=== PATIENT | male | born 1980 | race Caucasian/White ===

== ENCOUNTER 2017-11-18 15:34 | Inpatient (IN) | payer SELFPAY ==
[2017-11-18 18:12] LABS: Bilirubin Negative (Negative); Blood, Urine Negative (Negative); Clarity CLEAR (Clear); Glucose, Urine (Dipstick) Negative (Negative); Leukocyte Negative (Negative); Nitrite Negative (Negative); Protein, Urine (Dipstick) Negative (Neg-Trace); Specific Gravity, Urine 1.002 (1.002-1.036); pH, Urine 7.5 (5.0-9.0)
[2017-11-18 18:22] LABS: Amphetamine Not Detected (NotDetected); Barbiturates Screen Not Detected (NotDetected); Benzodiazepine Screen Detected (NotDetected); Cocaine Metabolite Screen Not Detected (NotDetected); Medtox Control Line Valid? VALID (VALID); Medtox Reader # READER 1; Methadone Not Detected (NotDetected); Methamphetamine Not Detected (NotDetected); Opiate Screen Not Detected (NotDetected); Oxycodone Screen Not Detected (NotDetected); Phencyclidine (PCP) Not Detected (NotDetected); THC/Cannabinoid Screen Not Detected (NotDetected); Tricyclic Screen Not Detected (NotDetected)
[2017-11-18 18:38] LABS: ALT (SGPT) 71 U/L (8-55); AST (SGOT) 206 U/L (5-34); Albumin 3.5 g/dL (3.5-5.0); Alkaline Phosphatase 131 U/L (40-150); Anion Gap 15 mmol/L (10-20); BUN (Urea Nitrogen) 6 mg/dL (8.9-20.6); Calc. Creatinine Clearance 0 mL/min (70-130); Calcium 8.2 mg/dL (7.8-10.44); Carbon Dioxide 23 mmol/L (22-29); Chloride 109 mmol/L (98-107); Estimated GFR-MDRD Greater than 90; Globulin 3.1 g/dL (2.4-3.5); Glucose 120 mg/dL (70-105); Potassium 3.7 mmol/L (3.5-5.1); Protein, Total 6.6 g/dL (6.0-8.3); Sodium 143 mmol/L (136-145)
[2017-11-18 18:43] LABS: #Basophils 0.1 thou/uL (0.0-0.2); #Lymphocytes 1.8 thou/uL (1.20-3.40); #Monocytes 0.3 thou/uL (0.11-0.59); #Neutrophils 2.2 thou/uL (1.40-6.50); %Basophils 1.6 % (0.0-1.0); %Eosinophils 0.7 % (0.0-10.0); %Lymphocytes 40.7 % (21.0-51.0); %Monocytes 6.2 % (0.0-10.0); %Neutrophils 50.8 % (42.0-75.0); Mean Corpuscular HGB CONC 35.2 g/dL (32.0-36.0); Mean Corpuscular Hemoglobin 31.5 pg (27.0-31.0); Mean Corpuscular Volume 89.6 fL (78.0-98.0); Mean Platelet Volume 9.1 fL (7.4-10.4); PLT Morphology Comment Appears Decreased; Platelet Count 36 thou/uL (130-400); RBC Distribution Width 14.3 % (11.5-14.5); Red Blood Cell (RBC) Count 4.75 mill/uL (4.70-6.10); White Blood Cell (WBC) Count 4.4 thou/uL (4.8-10.8)
[2017-11-18] MEDS ORDERED: Multivitamins, Adult 10 ML, Thiamine HCl 100 MG, Folic Acid 1 MG in Dextrose 5 %-0.45 %... IV ONE (19:30)
[2017-11-18 19:31] LABS: Acetaminophen Less than 6.0 mcg/mL (10.0-30.0); Alcohol 390 mg/dL (Less than 10); Salicylate Less than 8.0 mg/dL (15.0-30.0)
[2017-11-19] MEDS ORDERED: Ondansetron HCl/PF 4 MG/2 ML Vial IVP PRN
[2017-11-19] MEDS ORDERED: Diazepam 5 MG TAB PO PRN (02:12)
[2017-11-19] MEDS ORDERED: Thiamine HCl 200 MG/2 ML VIAL IM SCH (02:15)
[2017-11-19 02:17] VITALS: BMI 25.4
[2017-11-19 06:20] LABS: Anion Gap 9 mmol/L (10-20); BUN (Urea Nitrogen) 4 mg/dL (8.9-20.6); Calc. Creatinine Clearance 209 mL/min (70-130); Calcium 7.4 mg/dL (7.8-10.44); Carbon Dioxide 26 mmol/L (22-29); Chloride 111 mmol/L (98-107); Estimated GFR-MDRD Greater than 90; Glucose 155 mg/dL (70-105); Sodium 143 mmol/L (136-145)
--- NOTE | 2017-11-19 06:49 | HP-2 ---
PRIMARY CARE PHYSICIAN: The patient has no PCP. CODE STATUS: FULL CODE. TIME OF EVALUATION: 11:50 p.m. CHIEF COMPLAINT: For this patient was overdosed on Xanax and alcohol intoxication. HISTORY OF PRESENT ILLNESS: This is a 37-year-old male patient. The patient has a past medical hist ory of alcohol abuse, benzodiazepines abuse, the patient reported that he was trying to quit and got symptoms of delirium tremens, so he started drinking alcohol again and took a couple of Xanax, 2 mg, report recent inconsistent. Patient came to the ER and was lethargic due to intoxication. Dur ing my examination, mental status much better, patient has stated that he was trying to quit, but it has been very difficult for him. Symptoms were severe. No alleviating factors, no medical treatment . REVIEW OF SYSTEMS: Constitutional: No fever or chills or generalized weakness. Respiratory: No co ugh, sputum production, or shortness of breath. Cardiovascular: No chest pain, palpitations, shortn ess of breath. Gastrointestinal: No nausea, no vomiting, diarrhea or abdominal pain. 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 Genitourinary: No burning with urination. Extremiti es: No leg swelling. All other systems were reviewed and are negative except for the findings menti oned above. PAST MEDICAL HISTORY: Positive for liver cirrhosis and alcohol abuse, benzodiazepines abuse. PAST SURGICAL HISTORY: No surgical history. PSYCHIATRIC HISTORY: Anxiety and depression. FAMILY HISTORY: Mother alcoholic. ALLERGIES: No known drug allergies. REPORTED MEDICATIONS: None. PHYSICAL EXAMINATION: VITAL SIGNS: On presentation, blood pressure 139/82 with heart rate 94, respiratory rate of 16, temp erature 98.7, pain was 0, oxygen saturation was 96 on room air. The patient is protecting airways. GENERAL: The patient is alert, oriented with poor hygiene. HEENT: Eyes, normal conjunctivae, moist oral mucosa, anicteric. NECK: No JVD. RESPIRATORY: Bilateral air entry. No rales, no wheezing. Symmetric expansion. CARDIOVASCULAR: Normal rate, regular rhythm. No murmurs, no gallop, no edema. ABDOMEN: Soft, normal bowel sounds. MUSCULOSKELETAL: Baseline range of motion and strength, no tenderness. SKIN: Warm and intact. No pallor, no rash, no redness. Peripheral pulses are present. Capillary r efill seems to be intact. NEUROLOGIC: Baseline sensorium. No evidence of any new focal weakness. Baseline speech. Cranial n erve seems to be intact. PSYCHIATRIC: The patient in a good mood. No anxiety. Oriented, optimal judgment, occasionally seem s to be depressed. LABORATORY DATA: Labs were reviewed. The patient has a white count of 4.4, hemoglobin 15, MCV 89, p latelet count 36. Chemistry: Sodium 143, potassium 3.7, chloride 109, carbon dioxide 23, anion gap 15, BUN 6, creatinine 0.6, GFR greater than 90, glucose 120, calcium 9.2, total bilirubin 2.0, AST 20 6, ALT 71, alkaline phosphatase 131. CK 181, serum total protein 6.6, albumin 3.5. TSH 0.8. Urine was negative. Toxicology, benzodiazepines were detected. Plasma alcohol 390. ASSESSMENT AND PLAN: The patient will be placed in the hospital with following medical problems: 1. Alcohol intoxication, patient was trying to restart drinking again. Presented to the ER wi th acute encephalopathy secondary to intoxication and also due to Xanax overdose. These symptoms are improving, alcohol level still 390. We will monitor overnight. We will watch for delirium tremens. Placed the patient on DOMINIC protocol, we will adjust treatment as needed, might benefit from case man ager consult to see if the patient can receive any help for rehabilitation program, he is interesting to go. 2. History of liver cirrhosis is probably chronic and seems to be stable at this point. 3. Xanax overdose. The patient is more alert now. It looks like this problem has resolved, he said he took the Xanax because he was trying to treat these DT symptoms. 4. Deep venous thrombosis prophylaxis.
[2017-11-19 07:07] LABS: Platelet Count 29 thou/uL (130-400)
[2017-11-19 07:28] LABS: #Basophils 0.1 thou/uL (0.0-0.2); #Lymphocytes 1.7 thou/uL (1.20-3.40); #Monocytes 0.2 thou/uL (0.11-0.59); #Neutrophils 1.4 thou/uL (1.40-6.50); %Basophils 1.6 % (0.0-1.0); %Eosinophils 1.3 % (0.0-10.0); %Lymphocytes 49.8 % (21.0-51.0); %Monocytes 5.4 % (0.0-10.0); Hemoglobin 14.1 g/dL (14.0-18.0); Mean Corpuscular HGB CONC 35.5 g/dL (32.0-36.0); Mean Corpuscular Hemoglobin 31.8 pg (27.0-31.0); Mean Corpuscular Volume 89.7 fL (78.0-98.0); Mean Platelet Volume 9.9 fL (7.4-10.4); PLT Morphology Comment Appears Decreased; RBC Distribution Width 14.5 % (11.5-14.5); Red Blood Cell (RBC) Count 4.44 mill/uL (4.70-6.10); White Blood Cell (WBC) Count 3.4 thou/uL (4.8-10.8)
[2017-11-19 07:29] LABS: MDiff Complete? YES
[2017-11-19] MEDS ORDERED: Sodium Chloride 0.9% 10 ML ONE (08:29)
[2017-11-19] MEDS: Folic Acid 1 MG TAB PO SCH (08:42)
[2017-11-19] MEDS: Multivitamin W/ Minerals 1 TAB PO SCH (08:42)
[2017-11-19] MEDS ORDERED: Enoxaparin Sodium 40 MG/0.4 ML SYRINGE SC SCH (09:00)
--- NOTE | 2017-11-19 09:59 | PDOC.PN ---
- Subjective Encounter Start Date: 11/19/17 Encounter Start Time: 16:37 Subjective: nsg notes rev, serge ovn, no new c/o. recounts hx of rehab/ detox x8 states -: he has been able to avoid IVDA for about a month now. previously saw GI and -: knows he has cirrhosis but doesnt' feel like he deserves a transplant - Objective Resuscitation Status: Resuscitation Status FULL:Full Resuscitation Vital Signs & Weight: Vital Signs (12 hours) Temp Pulse Resp BP BP Pulse Ox 11/19/17 08:00 96.1 F L 92 18 135/76 135/76 98 11/19/17 03:46 156/88 H 11/19/17 03:36 98.1 F 75 18 131/82 97 11/19/17 00:56 97.4 F L 83 20 156/88 H 95 Weight Weight 188 lb Result Diagrams: 11/19/17 05:35 11/19/17 15:41 Phys Exam - Physical Examination Constitutional: NAD lying in hospital bed HEENT: PERRLA, moist MMs Respiratory: no wheezing, no rales, no rhonchi, clear to auscultation bilateral Cardiovascular: RRR Gastrointestinal: soft, positive bowel sounds Neurological: moves all 4 limbs Psychiatric: normal affect, A&O x 3 Dx/Plan - Plan * ETOH intoxication * continue with ASE protocol * pt has known hx of ETOH w/d sz, continue to monitor benzodiazepine OD monitor mentation ? hx of cirrhosis noted in H&P check US abd bhavana in setting of transaminitis on admin recheck CMP in AM thrombocytopenia if does has have hx of cirrhosis, then that is a probable etiology d/c enoxaparin, start mechanical dvt ppx with SCDs recheck CBC in AM electrolyte abnormalities: hypoK recheck K, check Mg polysubstance abuse cessation counseling provided for all illicit substances/ prescription substances/ ETOH - pt is contemplative without a plan will recheck EtOH level in AM - [facility] consult if level <80 diet as sahyy activity as shayy dvt ppx SCDs d/w pt at bedside d/w pt's bedside nurse >30 min spent at bedside including counseling time Review of Systems - Medications/Allergies Allergies/Adverse Reactions: Allergies Allergy/AdvReac Type Severity Reaction Status Date / Time No Known Allergies Allergy Unverified 11/18/17 19:21 Medications: Current Medications Diazepam (Valium) 10 mg PO Q4H PRN PRN Reason: FOR ASE 10 OR GREATER Stop: 11/20/17 04:00 Diazepam (Valium) 5 mg PO Q4H PRN PRN Reason: FOR ASE 10 OR GREATER Folic Acid (Folvite) 1 mg PO DAILY [facility] Last Admin: 11/19/17 08:42 Dose: 1 mg Iron/Minerals/Multivitamins (Theragran M) 1 tab PO DAILY [facility] Last Admin: 11/19/17 08:42 Dose: 1 tab Magnesium Oxide (Magnesium Oxide) 400 mg PO DAILY [facility] Ondansetron HCl (Zofran) 4 mg IVP Q6H PRN PRN Reason: Nausea/Vomiting Thiamine HCl (Thiamine) 100 mg PO DAILY [facility]
[2017-11-19 10:18] LABS: Magnesium 1.7 mg/dL (1.6-2.6); Potassium 3.1 mmol/L (3.5-5.1)
[2017-11-19 16:25] LABS: Magnesium 1.9 mg/dL (1.6-2.6); Potassium 3.8 mmol/L (3.5-5.1)
--- NOTE | 2017-11-19 16:41 | ULT ---
ULTRASOUND ABDOMEN LIMITED: (RIGHT UPPER QUADRANT) 11/19/17 HISTORY: Cirrhosis and transaminitis in 37-year-old male. FINDINGS: Gallbladder: No gallstones or sludge identified. Not distended. Wall mildly thickened to approximatel y 4 mm. Common duct: 4 mm. Liver: Diffusely coarse and heterogeneous echotexture. Nodular margins. There is a 3 x 2 x 2.5 cm sli ghtly hypoechoic solid mass in the right lobe of the liver. Blood vessel with portal venous pulsed do ppler waveform at midline abutting the anterior edge of liver. Pancreas: Nonspecific sonographic appearance. Right kidney: No hydronephrosis. IMPRESSION: 1. Cirrhosis. 2. A 3 cm right hepatic solid mass. Recommend further evaluation with MRI of the liver with and without contrast, to rule out hepatocellular carcinoma. 3. Probable recanalized umbilical vein. EMI Burns POS: [facility]
[2017-11-19] MEDS ORDERED: Diazepam 5 MG TAB PO SCH (18:00)
[2017-11-20] MEDS: Lorazepam 2 MG/ML VIAL SLOW IVP PRN ×2 (03:40→11:19)
[2017-11-20] MEDS ORDERED: Diazepam 5 MG TAB PO PRN (04:00)
[2017-11-20 05:30] LABS: #Eosinphils 0.1 thou/uL (0.0-0.7); #Monocytes 0.2 thou/uL (0.11-0.59); #Neutrophils 1.2 thou/uL (1.40-6.50); %Basophils 0.5 % (0.0-1.0); %Eosinophils 2.1 % (0.0-10.0); %Lymphocytes 41.7 % (21.0-51.0); %Neutrophils 49.8 % (42.0-75.0); Hemoglobin 13.4 g/dL (14.0-18.0); Mean Corpuscular HGB CONC 35.6 g/dL (32.0-36.0); Mean Platelet Volume 9.5 fL (7.4-10.4); Platelet Count 30 thou/uL (130-400); RBC Distribution Width 14.3 % (11.5-14.5); Red Blood Cell (RBC) Count 4.19 mill/uL (4.70-6.10); White Blood Cell (WBC) Count 2.4 thou/uL (4.8-10.8)
[2017-11-20 05:37] LABS: ALT (SGPT) 63 U/L (8-55); AST (SGOT) 165 U/L (5-34); Alcohol 93 mg/dL (Less than 10); Alkaline Phosphatase 111 U/L (40-150); Anion Gap 11 mmol/L (10-20); BUN (Urea Nitrogen) 4 mg/dL (8.9-20.6); Bilirubin, Total 2.5 mg/dL (0.2-1.2); Calc. Creatinine Clearance 235 mL/min (70-130); Carbon Dioxide 22 mmol/L (22-29); Chloride 107 mmol/L (98-107); Estimated GFR-MDRD Greater than 90; Globulin 2.7 g/dL (2.4-3.5); Glucose 76 mg/dL (70-105); Magnesium 1.2 mg/dL (1.6-2.6); Potassium 3.4 mmol/L (3.5-5.1); Protein, Total 5.7 g/dL (6.0-8.3); Sodium 137 mmol/L (136-145)
[2017-11-20] MEDS: Magnesium Oxide 400 MG TAB PO SCH (08:08)
[2017-11-20] MEDS: Folic Acid 1 MG TAB PO SCH (08:08)
[2017-11-20] MEDS: Multivitamin W/ Minerals 1 TAB PO SCH (08:08)
--- NOTE | 2017-11-20 15:45 | PDOC.PN ---
- Subjective Encounter Start Date: 11/20/17 Encounter Start Time: 15:43 Subjective: nsg notes rev, serge ovn, no new c/o, overall feels better. says he does -: recall some sort of lesion on his liver when he was still seeing a GI -: specialist - Objective Resuscitation Status: Resuscitation Status FULL:Full Resuscitation Vital Signs & Weight: Vital Signs (12 hours) Temp Pulse Resp BP BP Pulse Ox 11/20/17 15:33 98.3 F 72 16 136/80 98 11/20/17 11:11 98.1 F 81 16 152/87 H 152/87 H 98 11/20/17 08:00 98.4 F 75 16 142/68 H 98 11/20/17 04:00 98.2 F 62 18 134/78 98 Weight Weight 190 lb 4.8 oz I&O: 11/19/17 11/20/17 11/21/17 06:59 06:59 06:59 Intake Total 1110 Output Total 975 Balance 135 Result Diagrams: 11/20/17 04:53 11/20/17 04:53 Phys Exam - Physical Examination Constitutional: NAD HEENT: PERRLA, moist MMs, sclera anicteric Neurological: moves all 4 limbs Psychiatric: normal affect, A&O x 3 Dx/Plan - Plan * ETOH intoxication * continue with ASE protocol * pt has known hx of ETOH w/d sz, continue to monitor * recheck EtOH level in AM benzodiazepine OD monitor mentation ? hx of cirrhosis noted in H&P US + for 3cm hepatic lesion, follow up MRI w/ and w/o contrast for further clarification thrombocytopenia if does has have hx of cirrhosis, then that is a probable etiology d/c enoxaparin, start mechanical dvt ppx with SCDs recheck CBC in AM electrolyte abnormalities: hypoK recheck K, check Mg polysubstance abuse cessation counseling provided for all illicit substances/ prescription substances/ ETOH - pt is contemplative without a plan will recheck EtOH level in AM - [facility] consult if level <80 diet as shayy activity as shayy dvt ppx SCDs d/w pt at bedside d/w pt's bedside nurse Review of Systems - Medications/Allergies Allergies/Adverse Reactions: Allergies Allergy/AdvReac Type Severity Reaction Status Date / Time No Known Allergies Allergy Unverified 11/18/17 19:21 Medications: Current Medications Diazepam (Valium) 5 mg PO Q4H PRN PRN Reason: FOR ASE 10 OR GREATER Folic Acid (Folvite) 1 mg PO DAILY [facility] Last Admin: 11/20/17 08:08 Dose: 1 mg Iron/Minerals/Multivitamins (Theragran M) 1 tab PO DAILY [facility] Last Admin: 11/20/17 08:08 Dose: 1 tab Lorazepam (Ativan) 2 mg SLOW IVP Q4H PRN PRN Reason: .AGITATION Last Admin: 11/20/17 11:19 Dose: 2 mg Magnesium Oxide (Magnesium Oxide) 400 mg PO DAILY [facility] Last Admin: 11/20/17 08:08 Dose: 400 mg Ondansetron HCl (Zofran) 4 mg IVP Q6H PRN PRN Reason: Nausea/Vomiting Thiamine HCl (Thiamine) 100 mg PO DAILY [facility] Last Admin: 11/20/17 08:08 Dose: 100 mg
[2017-11-21] MEDS: Lorazepam 2 MG/ML VIAL SLOW IVP PRN (04:54)
[2017-11-21 05:15] LABS: Platelet Count 20 thou/uL (130-400)
[2017-11-21 05:17] LABS: #Monocytes 0.2 thou/uL (0.11-0.59); #Neutrophils 1.7 thou/uL (1.40-6.50); %Basophils 0.7 % (0.0-1.0); %Eosinophils 1.5 % (0.0-10.0); %Lymphocytes 32.5 % (21.0-51.0); %Monocytes 7.9 % (0.0-10.0); %Neutrophils 57.3 % (42.0-75.0); Hemoglobin 14.7 g/dL (14.0-18.0); Mean Corpuscular Hemoglobin 32.6 pg (27.0-31.0); Mean Corpuscular Volume 90.6 fL (78.0-98.0); Mean Platelet Volume 10.3 fL (7.4-10.4); Red Blood Cell (RBC) Count 4.52 mill/uL (4.70-6.10); White Blood Cell (WBC) Count 2.9 thou/uL (4.8-10.8)
[2017-11-21 05:34] LABS: ALT (SGPT) 68 U/L (8-55); AST (SGOT) 170 U/L (5-34); Albumin 3.4 g/dL (3.5-5.0); Alkaline Phosphatase 128 U/L (40-150); Anion Gap 13 mmol/L (10-20); BUN (Urea Nitrogen) 6 mg/dL (8.9-20.6); Bilirubin, Total 3.5 mg/dL (0.2-1.2); Calc. Creatinine Clearance 207 mL/min (70-130); Calcium 8.7 mg/dL (7.8-10.44); Carbon Dioxide 23 mmol/L (22-29); Chloride 104 mmol/L (98-107); Estimated GFR-MDRD Greater than 90; Glucose 82 mg/dL (70-105); Magnesium 1.4 mg/dL (1.6-2.6); Potassium 3.9 mmol/L (3.5-5.1); Protein, Total 6.4 g/dL (6.0-8.3); Sodium 136 mmol/L (136-145)
[2017-11-21] MEDS: Folic Acid 1 MG TAB PO SCH (08:24)
[2017-11-21] MEDS: Magnesium Oxide 400 MG TAB PO SCH (08:24)
[2017-11-21] MEDS: Multivitamin W/ Minerals 1 TAB PO SCH (08:24)
[2017-11-21] MEDS ORDERED: Magnesium 2 GM/NS 0.9% 100 ML 4 GM in Premix Bag 1 BAG IVPB SCH (10:30)
[2017-11-21] MEDS ORDERED: Magnesium Sulfate 4 GM in Sodium Chloride 0.9% 250 ML 250 ML IVPB SCH (11:00)
[2017-11-21 11:24] VITALS: TEMP 98
--- NOTE | 2017-11-21 15:16 | MRI ---
MRI OF THE ABDOMEN WITH AND WITHOUT CONTRAST: INDICATION: Liver mass. TECHNIQUE: Multiplanar, multisequence MRI images were obtained of the abdomen utilizing a liver mass protocol an d 20 cc of Tiinkkce. FINDINGS: There is a 3.7 cm mass within segment 5 of the right hepatic lobe on image 13 of series 17. There is a 2 cm mass that likely corresponds to the sonographic abnormality seen on the comparison study date d 11/19/17 on image 13 of series 7. These lesions on the T2 weighted images are more hypointense than the surrounding liver parenchyma. This is best seen on image 21 of series 4. These lesions are some what more hyperintense on the T1 weighted images than the adjacent parenchyma, particularly on 37 of series 5. These lesions do not appreciably enhance; however, there is some heterogeneous nonspecific [id number] enhancement seen throughout the liver on the portal venous and delayed phase images wh ich is likely related to patient's severe cirrhosis. There is recanalization of the umbilical vein. There is prominent splenomegaly. No definite pathologically enlarged lymph nodes are grossly eviden t. There is prominent signal dropout involving the liver on the in and out of phase images consisten t with some fatty infiltration. A small amount of fluid is seen surrounding the right hepatic lobe. IMPRESSION: 1. Cirrhotic morphology of the liver with changes of portal hypertension and recanalization of the u mbilical vein with splenomegaly. 2. Mild ascites. 3. The mass-like abnormality seen within the central aspect of the right hepatic lobe on the compari son right upper quadrant ultrasound dated 11/19/17 likely corresponds to a small 2 cm oval lesion withi n segment 6 of the right hepatic lobe. This lesion is somewhat T2 hypointense and somewhat T1 hyperi ntense without appreciable enhancement and is suspicious for a dysplastic nodule. Short-term followu p in 3-6 months is recommended to document stability. An additional larger nodule is seen within seg ment 5 of the right hepatic lobe measuring just over 3 cm. 4. Prominent fatty infiltration of the liver. POS: [facility]
[2017-11-21 15:38] VITALS: BP 127/82
--- NOTE | 2017-11-21 17:14 | DIS ---
DATE OF ADMISSION: 11/18/2017 DATE OF DISCHARGE: 11/21/2017 PRIMARY CARE PHYSICIAN: None. The patient will be following with [facility] after discharge. DISCHARGE DIAGNOSES: 1. Alcohol intoxication. 2. Xanax overdose, unintentional. 3. Hypomagnesemia. 4. Thrombocytopenia. 5. Liver mass were sent for dysplasia with recommendations repeat imaging in 3-6 months. 6. Cirrhosis, chronic. 7. Steatohepatitis. CONSULTATIONS: None. PROCEDURES: None. HISTORY AND PHYSICAL: Mr. Parrish is a 37-year-old gentleman presented in the emergency department just before midnight on 11/18/2017 for overdosing on Xanax plus alcohol intoxication. The patient r eports that he has a history of alcohol abuse and abuse who was trying to quit and got symptoms of DTs and started drinking again and took some Xanax. He was lethargic due to substance intoxicati on, but was somewhat improving. He denies any suicidal or homicidal ideation. HOSPITAL COURSE: The patient was seen and examined by Dr. Walters on 11/18/2017, placed on observation status. The patient was placed on ASE protocol and given Xanax p.r.n. The patient's initial alcohol level was 390, by 11/21/2007 he was down to 93 and today was undetectab le. The patient was back to baseline. He was seen by [facility] and cleared him for discharge with given resources given for outpatient drug and alcohol rehabilitation. Today, magnesium level is 1.4, was given IV magnesium and discharged home in stable condition. PHYSICAL EXAMINATION: The patient was seen and examined on the day of discharge. Discharge plan and disposition discussed with patient at bedside. DISCHARGE MEDICATIONS: None. [facility]. DISCHARGE CONDITION: Stable. DISPOSITION: Discharged home via private vehicle. DISCHARGE DIET: Heart healthy recommended.
== END 2017-11-21 16:28 | disposition home or self-care (01) | DRG 896 ==
LOC: ERS 15:34 → 2NO 22:21
PROVIDERS: ADMIT Hospitalist; ATTEND Hospitalist
DX: F10.121 Alcohol abuse with intoxication delirium (principal); G93.40 Encephalopathy, unspecified; T42.4X1A Poisoning by benzodiazepines, accidental (unintentional), initial encounter; K74.60 Unspecified cirrhosis of liver; D69.6 Thrombocytopenia, unspecified; K75.81 Nonalcoholic steatohepatitis (NASH); E83.42 Hypomagnesemia
CPT/HCPCS: 36415; 74183; 76705; 80048; 80053; 80306; 80307; 81003; 82550; 83735; 84443; 85025; 96361; 96365; 96366; A4216; J2060; J3411; J3475; J7042; J7050

== ENCOUNTER 2017-11-28 11:03 | Emergency (ER) | payer SELFPAY ==
[2017-11-28 11:37] LABS: #Basophils 0.1 thou/uL (0.0-0.2); #Lymphocytes 1.9 thou/uL (1.20-3.40); #Monocytes 0.2 thou/uL (0.11-0.59); #Neutrophils 1.9 thou/uL (1.40-6.50); %Basophils 2.8 % (0.0-1.0); %Eosinophils 0.4 % (0.0-10.0); %Lymphocytes 46.1 % (21.0-51.0); %Monocytes 5.2 % (0.0-10.0); %Neutrophils 45.5 % (42.0-75.0); Mean Corpuscular HGB CONC 33.8 g/dL (32.0-36.0); Mean Corpuscular Hemoglobin 30.9 pg (27.0-31.0); Mean Corpuscular Volume 91.3 fL (78.0-98.0); Mean Platelet Volume 8.9 fL (7.4-10.4); Platelet Count 60 thou/uL (130-400); RBC Distribution Width 14.9 % (11.5-14.5); White Blood Cell (WBC) Count 4.1 thou/uL (4.8-10.8)
[2017-11-28] MEDS ORDERED: Lorazepam 2 MG/ML VIAL ONE (11:50)
[2017-11-28 12:05] LABS: ALT (SGPT) 141 U/L (8-55); AST (SGOT) 359 U/L (5-34); Albumin 4.1 g/dL (3.5-5.0); Alkaline Phosphatase 161 U/L (40-150); Anion Gap 18 mmol/L (10-20); BUN (Urea Nitrogen) 8 mg/dL (8.9-20.6); Bilirubin, Total 3.2 mg/dL (0.2-1.2); CK (CPK) 276 U/L (30-200); Calc. Creatinine Clearance 0 mL/min (70-130); Calcium 9.1 mg/dL (7.8-10.44); Carbon Dioxide 26 mmol/L (22-29); Chloride 97 mmol/L (98-107); Estimated GFR-MDRD Greater than 90; Globulin 3.8 g/dL (2.4-3.5); Glucose 171 mg/dL (70-105); Potassium 3.4 mmol/L (3.5-5.1); Protein, Total 7.9 g/dL (6.0-8.3); Sodium 138 mmol/L (136-145)
[2017-11-28 12:16] LABS: Acetaminophen Less than 6.0 mcg/mL (10.0-30.0); Alcohol 327 mg/dL (Less than 10); Magnesium 1.7 mg/dL (1.6-2.6); Salicylate Less than 8.0 mg/dL (15.0-30.0)
== END 2017-11-28 16:57 | disposition home or self-care (01) ==
LOC: ERS 11:03
DX: F19.10 Other psychoactive substance abuse, uncomplicated (principal); F32.9 Major depressive disorder, single episode, unspecified; F41.9 Anxiety disorder, unspecified; F17.210 Nicotine dependence, cigarettes, uncomplicated; K74.60 Unspecified cirrhosis of liver
CPT/HCPCS: 36415; 80053; 80307; 82550; 83735; 85025; 93005; 96361; 96374; J2060